=== PATIENT | female | born 1965 | race African-American/Black ===

== ENCOUNTER → 2016-06-22 | Day surgery (SDC) | payer BC ==
[~2016-06-22] VITALS: Ht 182.9 cm; Wt 88.0 kg
[~2016-06-22] MED LIST: CALCIUM-MAGNES1 EACH PO; MULTI VITAMIN1 EACH PO; TYLENOL WITH C1 EACH PO; VITAMIN D-32000 UNI1 PO
--- NOTE | ~2016-06-22 | OR ---
PATIENT'S NAME: MILTON URRUTIA [facility] AGE: 51 Y [address] ROOM: [place] [id number] LOCATION: [facility] – [place] ADMIT DATE: 06/22/2016 OR/Procedure Report DISCHARGE DATE: FAMILY PHYSICIAN: Suresh Devine MD ATTENDING PHYSICIAN: Libby Curtis SURGEON: Libby Curtis MD APPLICATION SPEC: DATE OF PROCEDURE: 06/22/2016 PREOPERATIVE DIAGNOSIS: Transitional cell carcinoma of the bladder. POSTOPERATIVE DIAGNOSIS: Transitional cell carcinoma of the bladder. PROCEDURE PERFORMED: Cystoscopy, bilateral retrograde pyelogram, bladder biopsy with fulguration and mitomycin bladder instillation. ANESTHESIA: General. COMPLICATIONS: None. 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 The patient is status post TURBT office fulgurations and a bladder biopsy with mitomycin instillation and 6-week course of BCG. DETAILS OF PROCEDURE: After informed consent was obtained, the patient was taken to the operating room. A general anesthetic was applied, and she was placed in the dorsal lithotomy position. The groin area was prepped and draped in normal sterile fashion. Cystoscope was introduced into the urethra and bladder without difficulty. First, the right ureteral orifice was identified and cannulated with an 8-Cymraes cone-tipped catheter. Contrast was injected into the ureter and kidney. No masses or filling defects were noted. There was no hydronephrosis or hydroureter present. I then injected contrast on the patient's left side, which also was normal without hydronephrosis, hydroureter, or masses. Both systems drained well. Next, the biopsy forceps were introduced and cold cup biopsies were taken of the small lesions near the right ureteral orifice. This area was then fulgurated. The cystoscope was removed and a 16-Cymraes Robertson catheter was placed. Once the bladder was completely drained, Mitomycin was injected into the bladder. The patient tolerated the procedure well and was transferred to recovery room in good condition. PATIENT'S NAME: MILTON URRUTIA [facility] AGE: 51 Y [address] ROOM: [place] [id number] LOCATION: [facility] – [place] ADMIT DATE: 06/22/2016 OR/Procedure Report DISCHARGE DATE: FAMILY PHYSICIAN: Suresh Devine MD ATTENDING PHYSICIAN: Libby Curtis MD HIRAL ARTHUR/modl /[id number] CC: Suresh Devine MD d: 06/22/162007 t: 06/27/16 1237, OPERATIVE SUMMARY
[2016-06-22 08:28] LABS: BASOPHIL % 0.5 %; EOSINOPHIL # 0.1 K/uL (0.0-0.5); EOSINOPHIL % 0.8 %; HEMOGLOBIN 9.2 g/dL (10.0-15.0); IMMATURE GRANULOCYTE % 0.1 %; LYMPHOCYTE # 1.5 K/uL (0.8-4.0); LYMPHOCYTE % 19.8 %; MCH 21.7 pg (27.0-34.0); MCHC 29.7 gm/dL (32.0-36.5); MCV 73.3 fl (83.0-98.0); MONOCYTE # 0.6 K/uL (0.0-1.0); MONOCYTE % 8.3 %; MPV 9.6 fl (9.4-12.4); NEUTROPHIL # (ANC) 5.2 K/uL (1.8-7.8); NEUTROPHIL % 70.5 %; NRBC % 0 /100WBC (0-0.00); PLATELET COUNT 343 K/uL (150-450); RBC 4.23 M/uL (3.50-5.50); WBC 7.3 K/uL (4.0-11.0)
[2016-06-22 08:47] LABS: ALBUMIN 3.4 gm/dL (3.5-5.0); ALK PHOS 85 IU/L (33-138); ALT 14 IU/L (12-78); AST 12 IU/L (10-40); BLOOD UREA NITROGEN 11 mg/dL (6-24); CALCIUM 8.3 mg/dL (8.5-10.5); CHLORIDE 105 mMol/L (96-110); CO2 28 mMol/L (22-32); CREATININE 0.9 mg/dL (0.5-1.1); ESTIMATED GFR (MDRD EQUATION) > 60; SODIUM 140 mMol/L (135-145); TOTAL BILIRUBIN 0.3 mg/dL (0.0-1.5); TOTAL PROTEIN 6.9 g/dL (6.0-8.4)
== END | disposition disaster alternative care site (69) ==
LOC: GPOC 06-18 08:00 → GSDC 07:42
PROVIDERS: Urology
PROC: BT14ZZZ Fluoroscopy of Kidneys, Ureters and Bladder (ICD-10-PCS; principal; 2016-06-22)
PROC: 0TBB8ZX Excision of Bladder, Via Natural or Artificial Opening Endoscopic, Diagnostic (ICD-10-PCS; 2016-06-22)
PROC: 3E0K805 Introduction of Other Antineoplastic into Genitourinary Tract, Via Natural or Artificial Opening Endoscopic (ICD-10-PCS; 2016-06-22)
DX: C67.9 Malignant neoplasm of bladder, unspecified (principal); Z98.890 Other specified postprocedural states
CPT/HCPCS: J1956; J7030; J9280